=== PATIENT | male | born 1975 | race Caucasian/White ===

== ENCOUNTER 2016-09-08 12:33 | Inpatient (IN) | payer SELFPAY ==
--- NOTE | 2016-09-08 12:48 | EDM.PDOC ---
ED HPI GENERAL MEDICAL PROBLEM - General Chief Complaint: Neuro Symptoms/Deficits Stated Complaint: DIZZINESS Time Seen by Provider: 09/08/16 12:40 Source of Information: Reports: Patient History Limitations: Reports: No Limitations - History of Present Illness INITIAL COMMENTS - FREE TEXT/NARRATIVE: This patient is a pleasant 41 year old male that presents to the ER. Patient reports that over the last one week he has had dizziness sensation. He reports that he fell over the weekend twice because of the dizziness. He reports that he went to work today and was outside. He reports he became dizzy again and fell to his knee twice today at work. He reports that his work told him that he passed out and fell to the ground. The patient reports that he does not recall passing out and did not think he was passing out. The patient reports that he has a severe headache, dizziness, left upper chest pain under the clavicle that he reports is worse with movement, shortness of breath, nausea. He reports that with his dizziness he becomes diaphoretic. The patient presented to the clinic initially, the RN Rosana called me with patient complaints, I asked her to have patient come to the ER with these symptoms. She reported to me that the patient at times would close his eyes and seem like he was going to pass out when she was doing history taking with him. During my exam int he ER the patient closes his eyes and shakes his head as if to wake himself up from passing out. Patient does report it feels like he could pass out at any time. The patient is laying safely in the ER stretcher, he was able to stand from a wheelchair and pivot to stretcher. The patient has no one with him here. The patient is alert and oriented. The patient has no unilateral weaknesses on examination. I have ordered several labs, cardiac work-up, ekg, cxr, and head ct. Duration: Week(s): (1) Severity: Moderate Improves with: Reports: None Worsens with: Reports: Other (standing) Associated Symptoms: Reports: Chest Pain, Diaphoresis, Headaches, Malaise, Nausea/Vomiting, Shortness of Breath, Syncope, Weakness (generally). Denies: Confusion, Cough, cough w sputum, Fever/Chills, Loss of Appetite, Rash, Seizure Left Chest Pain Score (Numeric/FACES): 5 - Related Data Allergies Allergy/AdvReac Type Severity Reaction Status Date / Time cefuroxime [From Ceftin] Allergy Difficulty Verified 09/08/16 12:53 Breathing cephalexin Allergy Difficulty Verified 09/08/16 12:53 Breathing Penicillins Allergy Cannot Verified 09/08/16 12:53 Remember Home Meds: Home Meds Amitriptyline [Elavil] 25 mg PO BEDTIME 09/08/16 [History] Aspirin 325 mg PO BEDTIME 09/08/16 [History] Losartan/Hydrochlorothiazide [Losartan-HCTZ 50-12.5 MG] 1 each PO BEDTIME [History] ED ROS GENERAL - Review of Systems Review Of Systems: See Below Constitutional: Reports: Malaise, Weakness (generally), Fatigue, Diaphoresis HEENT: Reports: No Symptoms Respiratory: Reports: Shortness of Breath Cardiovascular: Reports: Chest Pain, Lightheadedness Endocrine: Reports: Fatigue GI/Abdominal: Reports: Nausea : Reports: No Symptoms Musculoskeletal: Reports: No Symptoms Skin: Reports: No Symptoms Neurological: Reports: Dizziness, Headache, Syncope, Difficulty Walking (off balance), Weakness (generally), Gait Disturbance (ataxia due to lightheaded) Psychiatric: Reports: No Symptoms Hematologic/Lymphatic: Reports: No Symptoms Immunologic: Reports: No Symptoms - Physical Exam Exam: See Below Exam Limited By: No Limitations General Appearance: Alert, WD/WN, No Apparent Distress Eye Exam: Bilateral Eye: EOMI, Normal Inspection, PERRL Ears: Normal External Exam, Normal Canal, Hearing Grossly Normal Nose: Normal Inspection, Normal Mucosa, No Blood Throat/Mouth: Normal Inspection, Normal Lips, Normal Teeth, Normal Gums, Normal Oropharynx, Normal Voice, No Airway Compromise Head Exam: Atraumatic, Normocephalic Neck: Normal Inspection, Supple, Non-Tender, Full Range of Motion Respiratory/Chest: No Respiratory Distress, Lungs Clear, Normal Breath Sounds, No Accessory Muscle Use, Chest Non-Tender Cardiovascular: Normal Peripheral Pulses, Regular Rate, Rhythm, No Edema, No Gallop, No JVD, No Murmur, No Rub GI/Abdominal: Normal Bowel Sounds, Soft, Non-Tender, No Organomegaly, No Distention, No Abnormal Bruit, No Mass, Pelvis Stable Neuro Exam (Abbreviated): Alert, Oriented, CN II-XII Intact, Normal Cognition, No Motor/Sensory Deficits, Abnormal Gait (ataxia) Back Exam: Normal Inspection, Full Range of Motion Extremities: Normal Inspection, Normal Range of Motion, Non-Tender, No Pedal Edema, Normal Capillary Refill Psychiatric: Normal Affect, Normal Mood Skin Exam: Warm, Dry, Intact, Normal Color, No Rash EKG INTERPRETATION EKG Date: 09/08/16 Time: 12:35 Rhythm: other (sinus tach) QRS: normal ST-T: normal QT: normal Comparison: NA - no prior EKG Course - Vital Signs Last Recorded V/S: Last Vital Signs Temp 96.9 F 09/08/16 12:35 Pulse 103 H 09/08/16 13:37 Resp 16 09/08/16 12:35 BP 125/84 09/08/16 13:37 Pulse Ox 97 09/08/16 12:35 - Orders/Labs/Meds Orders: Active Orders 24 hr Category Date Time Status Patient Status Manage Transfer [TRANSFER] Routine ADT 09/08/16 13:42 Ordered Cardiac Monitoring [RC] . DIRECTED Care 09/08/16 13:42 Active Chest 2V [CR] Stat Exams 09/08/16 12:40 Taken Head wo Cont [CT] Stat Exams 09/08/16 12:40 Taken DRUG SCREEN URINE BIORAD [URCHEM] Stat Lab 09/08/16 12:40 Uncollected UA W/MICROSCOPIC [URIN] Stat Lab 09/08/16 12:40 Uncollected Resuscitation Status Routine Resus Stat 09/08/16 13:45 Ordered Labs: Laboratory Tests 09/08/16 09/08/16 09/08/16 Range/Units 12:40 12:40 12:40 WBC 7.3 (5.0-10.0) 10^3/uL RBC 5.49 (4.50-6.00) 10^6/uL Hgb 16.8 (14.0-18.0) g/dL Hct 48.8 (40.0-54.0) % MCV 88.9 (82.0-94.0) fL MCH 30.6 (27.0-32.0) pg MCHC 34.4 (33.0-38.0) g/dL RDW Coeff of Aung 11.7 (11.0-15.0) % Plt Count 240 (150-400) 10^3/uL Neut % (Auto) 63.7 (35-85) % Lymph % (Auto) 27.8 (10-55) % Sibley % (Auto) 4.8 (0-16) % Eos % (Auto) 3.0 (0-5) % Baso % (Auto) 0.7 (0-3) % Neut # (Auto) 4.68 (1.80-7.00) 10^3/uL Lymph # (Auto) 2.04 (1.00-4.80) 10^3/uL Sibley # (Auto) 0.35 (0.00-0.80) 10^3/uL Eos # (Auto) 0.22 (0.00-0.45) 10^3/uL Baso # (Auto) 0.05 10^3/uL PT 11.1 (9.7-12.3) SEC INR 1.03 (0.92-1.18) Sodium 136 (136-145) mEq/L Potassium 4.1 (3.5-5.0) mEq/L Chloride 96 L (98-106) mEq/L Carbon Dioxide 28 (21-32) mmol/L BUN 17 (7-18) mg/dL Creatinine 1.7 H (0.7-1.3) mg/dL Est Cr Clr Drug Dosing 72.43 mL/min Estimated GFR (MDRD) 44 L (>=60) mL/min Glucose 347 H* (75-99) mg/dL Hemoglobin A1c (4.8-6.2) % Calcium 8.8 (8.4-10.1) mg/dL Phosphorus 3.5 (2.5-4.9) mg/dL Magnesium 1.8 (1.8-2.4) mg/dL Total Bilirubin 1.0 (0.0-1.0) mg/dL AST 66 H (15-37) U/L ALT 121 H (12-78) U/L Alkaline Phosphatase 114 (46-116) U/L Creatine Kinase 85 (35-232) U/L Troponin I < 0.017 (0.00-0.06) ng/mL Total Protein 8.0 (6.4-8.2) g/dL Albumin 4.3 (3.4-5.0) g/dL 09/08/16 Range/Units 12:45 WBC (5.0-10.0) 10^3/uL RBC (4.50-6.00) 10^6/uL Hgb (14.0-18.0) g/dL Hct (40.0-54.0) % MCV (82.0-94.0) fL MCH (27.0-32.0) pg MCHC (33.0-38.0) g/dL RDW Coeff of Aung (11.0-15.0) % Plt Count (150-400) 10^3/uL Neut % (Auto) (35-85) % Lymph % (Auto) (10-55) % Sibley % (Auto) (0-16) % Eos % (Auto) (0-5) % Baso % (Auto) (0-3) % Neut # (Auto) (1.80-7.00) 10^3/uL Lymph # (Auto) (1.00-4.80) 10^3/uL Sibley # (Auto) (0.00-0.80) 10^3/uL Eos # (Auto) (0.00-0.45) 10^3/uL Baso # (Auto) 10^3/uL PT (9.7-12.3) SEC INR (0.92-1.18) Sodium (136-145) mEq/L Potassium (3.5-5.0) mEq/L Chloride (98-106) mEq/L Carbon Dioxide (21-32) mmol/L BUN (7-18) mg/dL Creatinine (0.7-1.3) mg/dL Est Cr Clr Drug Dosing mL/min Estimated GFR (MDRD) (>=60) mL/min Glucose (75-99) mg/dL Hemoglobin A1c 8.8 H (4.8-6.2) % Calcium (8.4-10.1) mg/dL Phosphorus (2.5-4.9) mg/dL Magnesium (1.8-2.4) mg/dL Total Bilirubin (0.0-1.0) mg/dL AST (15-37) U/L ALT (12-78) U/L Alkaline Phosphatase (46-116) U/L Creatine Kinase (35-232) U/L Troponin I (0.00-0.06) ng/mL Total Protein (6.4-8.2) g/dL Albumin (3.4-5.0) g/dL Meds: Medications Discontinued Medications Generic Name Dose Route Start Last Admin Trade Name Conrad PRN Reason Stop Dose Admin Sodium Chloride 1,000 mls @ 1,000 mls/hr 09/08/16 12:56 09/08/16 13:16 Normal Saline IV 09/08/16 13:55 1,000 mls/hr .BOLUS ONE Administration - Radiology Interpretation Free Text/Narrative:: Head Ct: No actue findings Discussed with radiologist CXR: No infiltrate, no cardiac enlargement, no edema. CT Results Date: 09/08/16 CT Results Time: 13:25 - Re-Assessments/Exams Free Text/Narrative Re-Assessment/Exam: 09/08/16 13:57 Patient has renal insufficiency with new onset diabetes. He does report he has been urinating a lot and been very thirsty lately. I will admit. Departure - Departure Time of Disposition: 13:56 Disposition: Admitted As Inpatient 64 Clinical Impression: Renal insufficiency, Lightheaded Diabetes mellitus Qualifiers: Diabetes mellitus type: type 2 Diabetes mellitus complication status: with hyperglycemia Diabetes mellitus correction insulin use: without laborer marine terminal use Qualified Code(s): E11.65 - Type 2 diabetes mellitus with hyperglycemia Syncope Qualifiers: Syncope type: unspecified Qualified Code(s): R55 - Syncope and collapse - Discharge Information Forms: ED Department Discharge - My Orders Last 24 Hours: My Active Orders 09/08/16 12:40 Chest 2V [CR] Stat Head wo Cont [CT] Stat DRUG SCREEN URINE BIORAD [URCHEM] Stat UA W/MICROSCOPIC [URIN] Stat 09/08/16 13:42 Patient Status Manage Transfer [TRANSFER] Routine Cardiac Monitoring [RC] . DIRECTED 09/08/16 13:45 Resuscitation Status Routine - Assessment/Plan Last 24 Hours: My Active Orders 09/08/16 12:40 Chest 2V [CR] Stat Head wo Cont [CT] Stat DRUG SCREEN URINE BIORAD [URCHEM] Stat UA W/MICROSCOPIC [URIN] Stat 09/08/16 13:42 Patient Status Manage Transfer [TRANSFER] Routine Cardiac Monitoring [RC] . DIRECTED 09/08/16 13:45 Resuscitation Status Routine Plan: PLEASE SEE RN NOTE FOR PFSH. PLEASE USE ER H&P ADMIT H&P.
[2016-09-08] MEDS ORDERED: Sodium Chloride 0.9% 1,000 ML IV ONE ×2 (12:56→14:18)
[2016-09-08 12:58] LABS: CHLORIDE,CL 96 mEq/L (98-106); SODIUM,NA 136 mEq/L (136-145)
[2016-09-08] MEDS ORDERED: Acetaminophen/HYDROcodone 325-5 MG Tab PO PRN (14:18)
[2016-09-08] MEDS ORDERED: Ondansetron 4 MG/2 ML SDV IV PRN (14:18)
[2016-09-08] MEDS ORDERED: Insulin Regular, Human 100 Units/ML 10 ML Vial IV ONE (14:18)
[2016-09-08] MEDS ORDERED: Morphine 2 MG/ML Syringe IVPUSH PRN (14:18)
[2016-09-08 14:30] LABS: O2 DELIVERY DEVICE ROOM AIR
[2016-09-08 14:32] LABS: PCO2 ARTERIAL 36 mm/Hg0 (35-45); PO2 ARTERIAL 81 mm/Hg (80-100)
[2016-09-08 14:33] LABS: BICARBONATE,ARTERIAL 23.2 mm/L (22.0-26.0); O2 SATURATION ARTERIAL 96 % (95-98)
[2016-09-08] MEDS ORDERED: Sodium Chloride 0.9% 1,000 ML ONE (14:37)
[2016-09-08] MEDS: Sodium Chloride 0.9% 1,000 ML IV SCH ×2 (15:30→23:35)
[2016-09-08] MEDS: Insulin Aspart 100 Units/ML 3 ML Pen SUBCUT SCH ×2 (17:49→21:10)
[2016-09-08] MEDS: metFORMIN 500 MG Tab.ER PO SCH (17:49)
[2016-09-08] MEDS: Aspirin 325 MG Tab.EC PO SCH (19:50)
[2016-09-08] MEDS: Losartan 100 MG Tab PO SCH (19:51)
[2016-09-08] MEDS: Hydrochlorothiazide 12.5 MG Cap PO SCH (19:52)
[2016-09-08] MEDS: Amitriptyline 25 MG Tab PO SCH (19:52)
[2016-09-08] MEDS: Enoxaparin 40 MG/0.4 ML Syringe SUBCUT SCH (19:53)
[2016-09-08] MEDS: Acetaminophen 325 MG Tab PO PRN (19:58)
[2016-09-08] MEDS ORDERED: HYDROCHLOROTHIAZIDE PO SCH (20:00)
[2016-09-08] MEDS ORDERED: LOSARTAN PO SCH (20:00)
[2016-09-09] MEDS: Sodium Chloride 0.9% 1,000 ML IV SCH (07:36)
[2016-09-09] MEDS: metFORMIN 500 MG Tab.ER PO SCH ×2 (07:36→17:37)
[2016-09-09 08:00] LABS: CHLORIDE,CL 101 mEq/L (98-106); SODIUM,NA 138 mEq/L (136-145)
[2016-09-09] MEDS: Insulin Aspart 100 Units/ML 3 ML Pen SUBCUT SCH ×4 (10:28→20:41)
[2016-09-09] MEDS: Hydrochlorothiazide 12.5 MG Cap PO SCH (19:33)
[2016-09-09] MEDS: Amitriptyline 25 MG Tab PO SCH (19:34)
[2016-09-09] MEDS: Enoxaparin 40 MG/0.4 ML Syringe SUBCUT SCH (19:34)
[2016-09-09] MEDS: Aspirin 325 MG Tab.EC PO SCH (19:34)
[2016-09-09] MEDS: Losartan 100 MG Tab PO SCH (19:35)
[2016-09-10 07:50] LABS: CHLORIDE,CL 98 mEq/L (98-106); SODIUM,NA 135 mEq/L (136-145)
[2016-09-10] MEDS: metFORMIN 500 MG Tab.ER PO SCH ×2 (07:59→17:30)
[2016-09-10] MEDS: Insulin Aspart 100 Units/ML 3 ML Pen SUBCUT SCH ×4 (08:00→20:29)
--- NOTE | 2016-09-10 08:58 | PN ---
DATE: 09/09/2016 S: Mr. Kwon was admitted for hyperglycemia. He is a new onset type 2 diabetic or newly diagnosed type 2 diabetic rather, who has probably had elevated sugars for at least 3 years. He came in with apparent recurrent syncopal episodes, some episodes with head trauma evaluated in the emergency room. Lab work was all reassuring other than his A1c being elevated around 8.[address] of the head was negative. He was admitted for fluids and initiation of diabetic medications. Since he has been admitted, his vitals were stable. Blood pressures have been actually a little up. He has had no telemetry irregularities or bradycardia. No further syncopal episodes. O: GENERAL: On exam, he is a pleasant, cooperative male, who appears in no distress. HEENT: Grossly benign. NECK: His neck veins are flat. LUNGS: Clear throughout. CARDIAC: Tones are regular. He has no peripheral edema. No carotid bruits could be heard. ASSESSMENT: 1. NEWLY DIAGNOSED TYPE 2 DIABETES. 2. OBESITY. 3. LONGSTANDING HYPERTENSION. 4. APPARENT RECURRENT SYNCOPE. P: The patient is on telemetry. We will get an echo and a carotid. I will have both the dietitian and clinical informatics educator come and evaluate him today. He has been initiated on metformin and p.r.n. sliding scale insulin today. The patient will likely go home tomorrow. AFSANEH/MICHEAL /[id number]
--- NOTE | 2016-09-10 12:36 | PN ---
DATE: 09/10/2016 S: Mr. Kwon is doing well as far as his vitals. Blood pressures are still been up, we are going to increase his Cozaar. He has been afebrile. Sugars continue to run high. He is on a low-dose metformin 500 twice a day. He has not had any further syncope. No telemetry abnormalities since admission. O: GENERAL: He is pleasant and cooperative. He appears in no distress. NECK: Supple. Veins are flat. LUNG: Sounds are clear. CARDIAC: Tones are regular. ABDOMEN: Soft. He has no peripheral edema. ASSESSMENT: 1. NEW-ONSET TYPE 2 DIABETES. 2. RECURRENT SYNCOPE. 3. HYPERTENSION, UNCONTROLLED. P: We will increase Cozaar from 50 to 100. Stop his hydrochlorothiazide. Still waiting on his echocardiogram due to his syncope, concerned about are inability to get his sugars down. We are still waiting for dietitian and consumer educator consult, but I am going to put him on Lantus 15 mg nightly. The patient is now ready for discharge at this time. AFSANEH/MICHEAL /[id number]
[2016-09-10] MEDS ORDERED: Losartan 100 MG Tab PO SCH (20:00)
[2016-09-10] MEDS ORDERED: Insulin Detemir 100 Units/ML 3 ML Pen SUBCUT SCH (20:00)
[2016-09-10] MEDS: Aspirin 325 MG Tab.EC PO SCH (20:21)
[2016-09-10] MEDS: Amitriptyline 25 MG Tab PO SCH (20:21)
[2016-09-10] MEDS: Enoxaparin 40 MG/0.4 ML Syringe SUBCUT SCH (20:22)
[2016-09-11 07:44] LABS: CHLORIDE,CL 99 mEq/L (98-106); SODIUM,NA 136 mEq/L (136-145)
[2016-09-11 08:07] VITALS: BP 139/100
[2016-09-11] MEDS: Insulin Aspart 100 Units/ML 3 ML Pen SUBCUT SCH (08:10)
[2016-09-11] MEDS: metFORMIN 500 MG Tab.ER PO SCH (08:10)
[2016-09-11] MEDS: Acetaminophen 325 MG Tab PO PRN (09:47)
--- NOTE | 2016-09-12 09:20 | DISCH ---
ADMISSION DIAGNOSES: 1. Dizziness. 2. History of syncope. 3. New-onset type 2 diabetes. DISCHARGE DIAGNOSIS: 1. DIZZINESS. 2. HISTORY OF SYNCOPE. 3. NEW-ONSET TYPE 2 DIABETES. 4. RIGHT UPPER QUADRANT PAIN WITH HISTORY OF CHOLELITHIASIS. HISTORY: The patient is a 41-year-old, who came in with recurrent episodes of dizziness and apparent syncope, although, he could not really describe a full on conscious state. Nevertheless, he was admitted by Cameron Rodriguez with an elevated blood sugar in the 347 range. He was clinically dehydrated from his metabolic abnormality and we elected to put him in the hospital for evaluation of his syncope and treatment of his diabetes. HOSPITAL COURSE: The patient was stable while here. His blood pressure actually elevated. We switched him off his Hyzaar and put him on Cozaar 100 mg a day and got rid of his hydrochlorothiazide and started him on a sliding scale insulin and metformin. For the most part, his sugars have still been in the low 200s. We him on 500 b.i.d. of metformin and I am going to ultimately sent him home on Levemir 20 units a day and we will titrate this as an outpatient. He does have a glucometer at home. Echocardiogram and carotid ultrasound were done and they were fine. He has been on telemetry since admission and he has had no irregularities. For the most part, he has done exceptional. On the morning of discharge, he complained of some right upper quadrant pain. He has a documented history of cholelithiasis and declines any further workup at this time. I suspect this is his gallbladder and we will discuss this further as an outpatient. At this time, he is going to go home with metformin, Levemir and a change in his Cozaar dose. I will see him in clinic for followup. He has seen dietitian and adult educator and we will continue close outpatient followup. COMPLICATIONS: During his stay were none. CONSULTATIONS: Dietitian. consumer educator. PROCEDURES: Echo and carotid. DISPOSITION: Discharged home. AUGUST /[id number]
== END 2016-09-11 11:00 | disposition home or self-care (01) | DRG 312 ==
LOC: CC.ED 12:33 → CC.MS 13:55 → UNDOADMIN 13:55 → CC.MS 14:18
PROVIDERS: ADMIT Nurse Practitioner; ATTEND Family Medicine
DX: R55 Syncope and collapse (principal); E11.65 Type 2 diabetes mellitus with hyperglycemia; E86.0 Dehydration; E66.9 Obesity, unspecified; N28.9 Disorder of kidney and ureter, unspecified; I10 Essential (primary) hypertension; K80.20 Calculus of gallbladder without cholecystitis without obstruction; W19.XXXA Unspecified fall, initial encounter; Z79.82 Long term (current) use of aspirin; Z79.899 Other long term (current) drug therapy; Z88.0 Allergy status to penicillin; Z88.1 Allergy status to other antibiotic agents
CPT/HCPCS: 36415; 36600; 70450; 71020; 80053; 80305; 81001; 82550; 82803; 82962; 83036; 83735; 84100; 84484; 85025; 85610; 93005; 93306; 93880; 96360; 99285; A9270-GY; J1650; J1815-GY; J7030